=== PATIENT | female | born 1965 | race African-American/Black ===

== ENCOUNTER 2023-01-29 19:49 | Inpatient (IN) | payer MEDICAID ==
[~2023-01-29] VITALS: Ht 177.8 cm; Wt 67.6 kg
[2023-01-29 19:51] VITALS: O2SAT 97
[2023-01-29] MEDS ORDERED: ACETAMINOPHEN 325MG TABLET PO STA (22:27)
[2023-01-29 23:19] LABS: CLARITY URINE CLEAR (CLEAR); COLOR URINE DARK YELLOW (YELLOW); GLUCOSE URINE NEGATIVE (NEGATIVE); KETONES URINE 1+ (NEGATIVE); LEUKOCYTE ESTERASE URINE 1+ (NEGATIVE); NITRITE URINE POSITIVE (NEGATIVE); OCCULT BLOOD URINE 2+ (NEGATIVE); PROTEIN URINE 2+ (NEGATIVE); SPECIFIC GRAVITY URINE 1.032 (1.005-1.030)
[2023-01-29 23:22] LABS: BASOPHILS % 0.8 % (0.0-2.0); EOSINOPHILS % 0.2 % (0.0-5.0); HEMATOCRIT. 39.1 % (36.0-48.0); HEMOGLOBIN. 12.6 g/dL (12.0-16.0); LYMPHOCYTES % 10.7 % (20.0-50.0); MEAN CORPUSCULAR HEMOGLOBIN 25.8 pg (28.0-32.0); MEAN CORPUSCULAR HGB CONC 32.1 g/dL (31.0-37.0); MEAN CORPUSCULAR VOLUME 80.1 fL (81.0-99.0); MEAN PLATELET VOLUME 8.5 fl (7.4-10.4); MONOCYTES % 11.8 % (2.0-8.0); NEUTROPHILS % 76.5 % (40.0-76.0); PLATELET 234 x1000/uL (130-400); RED BLOOD CELL COUNT 4.88 mill/uL (4.2-5.4); RED CELL DISTRIBUTION WIDTH 15.1 % (11.6-14.6); WHITE BLOOD COUNT 11.1 x1000/uL (4.5-11.0)
[2023-01-29 23:23] LABS: BACTERIA URINE 1+; YEAST URINE NONE SEEN
[2023-01-29 23:31] LABS: CHLORIDE 107 mEq/L (98-107); INDEX HEMOLYSI 1 (1-3); INDEX ICTERIC 1 (1-4); INDEX LIPEMIC 1 (1-3); POTASSIUM 3.6 mEq/L (3.5-5.1); SODIUM 136 mEq/L (136-145)
[2023-01-29 23:48] LABS: ALANINE AMINOTRANSFERASE 17 IU/L (13-61); ALBUMIN 3.3 g/dL (3.4-5.0); ASPARTATE AMINOTRANSFERASE 10 IU/L (15-37); BILIRUBIN TOTAL 1.5 mg/dL (0.1-1.0); CALCIUM 8.7 mg/dL (8.5-10.1); CARBON DIOXIDE 25 mEq/L (21-32); CREATININE 0.8 mg/dL (0.6-1.3); GLUCOSE 131 mg/dL (70-105); NT PRO B-TYPE NATRIURETIC PEP 110 pg/mL (5-125); PROTEIN TOTAL 8.8 g/dL (6.0-8.3); T4 FREE 1.31 ng/dL (0.76-1.46); THYROID STIMULATING HORMONE 0.33 uIU/mL (0.36-3.74); TROPONIN I HIGH SENSITIVITY 4 ng/L (<54); UREA NITROGEN BLOOD 15 mg/dL (7-21)
[2023-01-30] MEDS ORDERED: CEFTRIAXONE 1GM PREMIX 50 ML IV ONE (00:30)
[2023-01-30] MEDS ORDERED: SODIUM CHLORIDE 0.9% 1,000 ML IV ONE (00:30)
[2023-01-30] MEDS ORDERED: AZITHROMYCIN 500MG/250ML 250 ML IV ONE (00:45)
[2023-01-30] MEDS ORDERED: ENOXAPARIN 80MG/0.8ML SYR SUBCUT ONE (00:45)
[2023-01-30 01:21] LABS: PARTIAL THROMBOPLASTIN TIME 31.4 sec (23.4-31.0); PROTHROMBIN TIME 10.7 sec (9.6-11.0)
[2023-01-30] MEDS ORDERED: IOHEXOL-350 100 ML BOTTLE ONE (02:57)
[2023-01-30 04:00] VITALS: BP 135/82; PULSE 85; RESP 20; TEMP 97.5
[2023-01-30] MEDS ORDERED: IPRATROPIUM/ALBUTEROL 0.5-3(2.5)MG/3ML NEB HHN PRN (07:00)
[2023-01-30] MEDS ORDERED: ACETAMINOPHEN 325MG TABLET PO PRN ×2 (07:00)
[2023-01-30] MEDS ORDERED: HYDROCODONE/ACETAMINOPHEN 5/325MG TABLET PO PRN (07:00)
[2023-01-30] MEDS ORDERED: LORAZEPAM 0.5MG TABLET PO PRN (07:00)
[2023-01-30] MEDS ORDERED: ONDANSETRON HCL 4MG/2ML INJ IV PRN (07:00)
[2023-01-30] MEDS ORDERED: CLONIDINE 0.1MG TABLET PO PRN (07:00)
[2023-01-30] MEDS ORDERED: DOCUSATE SODIUM 100MG CAPSULE PO PRN (07:00)
[2023-01-30 07:16] LABS: SQUAMOUS EPITHELIAL CELL URINE FEW /lpf (RARE/1+)
[2023-01-30 07:18] LABS: RBC URINE NONE SEEN /hpf (0-2)
[2023-01-30 07:20] LABS: AMORPHOUS SEDIMENT URINE 1+ /lpf
[2023-01-30 08:00] VITALS: BP 129/80; PULSE 80; RESP 20; TEMP 96
[2023-01-30 08:03] LABS: TROPONIN I HIGH SENSITIVITY 6 ng/L (<54)
[2023-01-30] MEDS ORDERED: ENOXAPARIN 80MG/0.8ML SYR SUBCUT SCH (10:00)
[2023-01-30] MEDS ORDERED: AZITHROMYCIN 500 MG in DEXT 5% WATER 250 ML IV SCH (21:00)
[2023-01-30] MEDS ORDERED: CEFTRIAXONE 1,000 MG in DEXTROSE 5% WATER 50 ML IV SCH (21:00)
== END 2023-01-30 16:31 | disposition left against medical advice (07) | DRG 720 ==
LOC: ER 19:49 → 7WST 01-30 01:29 → EDBEDREQ 01-30 02:03 → EDBEDREQTM 01-30 02:03 → ENRESERV 01-30 02:41
PROVIDERS: ADMIT Internal Medicine; ATTEND Internal Medicine
DX: A41.9 Sepsis, unspecified organism (principal); I26.99 Other pulmonary embolism without acute cor pulmonale; J18.9 Pneumonia, unspecified organism; Z20.822 Contact with and (suspected) exposure to COVID-19; Z53.29 Procedure and treatment not carried out because of patient's decision for other reasons; R94.6 Abnormal results of thyroid function studies; K40.90 Unilateral inguinal hernia, without obstruction or gangrene, not specified as recurrent; D72.821 Monocytosis (symptomatic)
CPT/HCPCS: 36415; 71045; 71275; 74176; 80053; 81003; 83605; 83880; 84145; 84439; 84443; 84481; 84484; 85025; 85379; 87426; 93005; 93970; 99285; C9803; J0456; J0696; J1650; J7030; J7060; Q9967